=== PATIENT | male | born 1995 | race Caucasian/White ===

== ENCOUNTER 2017-07-15 06:32 | Day surgery (SDC) | payer BC ==
[2017-07-15] MEDS ORDERED: PHENYLephrine 0.25% 15 ML NAS SPRAY (07:17)
[2017-07-15] MEDS ORDERED: MIDAZOLAM 1 MG/ML 2 ML INJ (07:32)
[2017-07-15] MEDS ORDERED: FENTAnyl 50 MCG/ML VIAL (07:32)
[2017-07-15] MEDS: LIDOCAINE 1%/EPI 30 ML INJ (07:45)
[2017-07-15] MEDS: BACITRACIN/POLYMYXIN 28.35 GM OINT TOP (07:54)
[2017-07-15] MEDS ORDERED: ONDANSETRON 4 MG INJ (07:56)
[2017-07-15] MEDS ORDERED: NEOSTIGMINE 3 MG/3 ML SYRINGE (08:06)
[2017-07-15] MEDS ORDERED: PROPOFOL 20 ML (08:06)
[2017-07-15] MEDS ORDERED: ROCURONIUM 50 MG INJ (08:06)
[2017-07-15] MEDS ORDERED: LIDOCAINE 2% (SDV) 5 ML INJ (08:06)
[2017-07-15] MEDS ORDERED: GLYCOPYRROLATE 1 MG INJ (08:06)
[2017-07-15] MEDS ORDERED: CEFAZOLIN 1 GM INJ (08:07)
[2017-07-15] MEDS ORDERED: SEVOFLURANE 15 MIN INH (16:14)
== END 2017-07-15 09:28 | disposition home or self-care (01) ==
LOC: SDS 06:32
DX: J34.3 Hypertrophy of nasal turbinates (principal); E66.01 Morbid (severe) obesity due to excess calories; Z68.41 Body mass index [BMI] 40.0-44.9, adult
CPT/HCPCS: 30520

== ENCOUNTER 2018-06-25 00:21 | Emergency (ER) | payer BC | END 2018-06-25 04:34 | disposition home or self-care (01) | LOC: FTE 00:21 | DX: T17.1XXA Foreign body in nostril, initial encounter (principal); F84.0 Autistic disorder; X58.XXXA Exposure to other specified factors, initial encounter; Y92.9 Unspecified place or not applicable | CPT/HCPCS: 70140; 99283 ==